=== PATIENT | male | born 1975 | race African-American/Black ===

== ENCOUNTER 2023-07-19 14:31 | Outpatient (CLI) | payer MEDICARE, MEDICAID ==
[2023-07-19 20:12] LABS: BASOPHILS # (AUTO) 0.1 10^3/uL (0.0-0.1); BASOPHILS % (AUTO) 0.7 %; EOSINOPHILS # (AUTO) 0.1 10^3/uL (0.0-0.7); EOSINOPHILS % (AUTO) 0.6 %; HCT - HEMATOCRIT 45.4 % (42.0-52.0); HGB - HEMOGLOBIN 14.8 g/dL (14.0-18.0); LYMPHOCYTES # (AUTO) 2.1 10^3/uL (1.5-3.5); LYMPHOCYTES % (AUTO) 22.7 %; MEAN CORPUSCULAR HEMOGLOBIN 28.9 pg (27.0-31.0); MEAN CORPUSCULAR HGB CONC 32.6 g/dL (32.0-36.0); MEAN CORPUSCULAR VOLUME 88.7 fL (80.0-94.0); MEAN PLATELET VOLUME 8.9 fL (7.4-11.4); MONOCYTES # (AUTO) 0.7 10^3/uL (0.0-1.0); MONOCYTES % (AUTO) 8.2 %; NEUTROPHILS # (AUTO) 6.1 10^3/uL (1.5-6.6); NEUTROPHILS % (AUTO) 67.6 %; PLT - PLATELET COUNT 257 10^3/uL (130-450); RED BLOOD COUNT 5.12 10^6/uL (4.70-6.10); RED CELL DISTRIBUTION WIDTH 12.9 % (12.0-15.0); WHITE BLOOD COUNT 9.1 x10^3/uL (4.8-10.8)
[2023-07-19 20:24] LABS: ALBUMIN 4.7 g/dL (3.2-5.5); ALBUMIN/GLOBULIN RATIO 1.7 (1.0-2.2); BILIRUBIN,TOTAL 0.5 mg/dL (0.2-1.0); CALCIUM 9.8 mg/dL (8.5-10.3); POTASSIUM 4.2 mmol/L (3.5-4.5); TOTAL PROTEIN 7.5 g/dL (6.4-8.9)
== END 2023-07-19 14:32 | disposition home or self-care (01) ==
LOC: LAB.S 14:31
PROVIDERS: ATTEND Physician Assistant Medical
DX: R14.0 Abdominal distension (gaseous) (principal); R10.9 Unspecified abdominal pain
CPT/HCPCS: 36415; 80053; 82150; 83690; 85025

== ENCOUNTER 2023-07-27 10:52 | Emergency (ER) | payer MEDICARE, MEDICAID ==
[2023-07-27 11:05] VITALS: BP 150/89; O2SAT 100
--- NOTE | 2023-07-27 11:42 | ED Physician Documentation ---
History of Present Illness - Stated complaint Stated Complaint: COUGH - Chief complaint Chief Complaint: Resp - History obtained from History obtained from: Patient - Additonal information Additional information: 47-year-old gentleman who is previously healthy. He has been dealing with stomach upset with nausea for 2 years and was seen at the walk-in clinic. Just started Protonix 2 days ago. For 2 weeks he has had a cough. He is not short of breath with it. Was initially productive but now is not. It is worse at night and early in the morning when he is laying flat especially and better when upright. There is no associated fever. PD PAST MEDICAL HISTORY - Past Medical History Past Medical History: Yes GI: Other Other Past Medical History: gallstones - Past Surgical History Past Surgical History: No - Present Medications Home Medications: Ambulatory Orders Medication Instructions Recorded Confirmed Albuterol Sulf [Ventolin Hfa 1 - 2 puffs INH Q4HR PRN #1 each 07/27/23 Inhaler] - Allergies Allergies/Adverse Reactions: Allergies Allergy/AdvReac Type Severity Reaction Status Date / Time No Known Drug Allergies Allergy Verified 07/27/23 11:03 - Social History Does the pt smoke?: Yes Smoking Status: Current every day smoker (1 pack/week) PD ED PE NORMAL - Vitals Vital signs reviewed: Yes - General General: Alert and oriented X 3, No acute distress - Cardiac Cardiac: RRR, No murmur - Respiratory Respiratory: No respiratory distress, Clear bilaterally - Abdomen Abdomen: Normal bowel sounds, Non tender - Back Back: No CVA TTP, No spinal TTP - Derm Derm: Normal color, Warm and dry - Extremities Extremities: No edema, No calf tenderness / cord - Neuro Neuro: Alert and oriented X 3, Normal speech Results - Vitals Vitals: Vital Signs - 24 hr 07/27/23 11:00 Temperature 36.7 C Heart Rate 86 Respiratory 16 Rate Blood Pressure 150/89 H O2 Saturation 100 - Rads (name of study) 2 view chest x-ray is unremarkable Relevant Findings:: Final report received, EMP independent interpretation of test PD Medical Decision Making - ED course ED course: 2 weeks of cough associated with some reflux symptoms, it is worse supine so I suspect this is reflux related bronchospasm. His examination is normal now. Given the length of time we will check a chest x-ray but discussed with him that the PPI that he just started would not expect to have been really effective yet. Departure - Departure Disposition: 01 Home, Self Care Clinical Impression: Cough Qualifiers: Cough type: subacute Qualified Code(s): R05.2 - Subacute cough Condition: Good Record reviewed to determine appropriate education?: Yes Instructions: ED Cough Chronic Cause Unkn Prescriptions: Albuterol Sulf [Ventolin Hfa Inhaler] 1 - 2 puffs INH Q4HR PRN #1 each PRN Reason: Shortness Of Air/Wheezing Comments: As discussed, the pattern of your cough, the fact that is worse when you are laying flat and in the morning and associated with your GI symptoms would suggest to me that it is related to reflux. You are on the right medication but it takes at least a few days to work, so I suspect you will get better over the next few days. I am adding an inhaler which may be helpful as well and do which you can to quit smoking although you do not smoke much. Call your doctor to arrange a follow-up appointment, make the next available appointment. In the interim, return anytime if worse or if new symptoms develop. Forms: PCP List Discharge Date/Time: 07/27/23 11:45
--- NOTE | 2023-07-27 11:57 | XRAY Report ---
PROCEDURE: Chest 2 View X-Ray INDICATIONS: cough TECHNIQUE: 2 views of the chest were acquired. COMPARISON: None. FINDINGS: Surgical changes and devices: None. Lungs and pleura: No pleural effusions or pneumothorax. Lungs are clear. Mediastinum: Mediastinal contours appear normal. Heart size is normal. Bones and chest wall: No suspicious bony lesions. Overlying soft tissues appear unremarkable. IMPRESSION: No acute cardiopulmonary process. Reviewed by: Sheng Rolle MD on 07/27/2023 10:56 AM [facility] Approved by: Sheng Rolle MD on 07/27/2023 10:56 AM [facility] Station ID: [id number]
== END 2023-07-27 11:45 | disposition home or self-care (01) ==
LOC: ED 10:52
DX: R05.2 Subacute cough (principal); F17.210 Nicotine dependence, cigarettes, uncomplicated
CPT/HCPCS: 99283

== ENCOUNTER 2023-08-17 10:00 | Outpatient (CLI) | payer MEDICARE, MEDICAID ==
--- NOTE | 2023-08-17 17:40 | Ultrasound Report ---
PROCEDURE: Abdomen Limited INDICATIONS: ABD PAIN TECHNIQUE: Real-time focused scanning was performed of the abdomen, with image documentation. COMPARISONS: None. FINDINGS: Liver: Liver is normal in size and homogeneous in echotexture. The parenchyma is diffusely echogenic . The main portal vein is patent with hepatopedal flow. Gallbladder: No stones or sludge. Normal wall thickness measuring 1.3 mm. No pericholecystic fluid. Biliary ducts: Intrahepatic bile ducts are non-dilated. Extrahepatic bile duct caliber measures 3.4 mm. Normal is 6-7 mm or less in diameter, or 10 mm or less post-cholecystectomy. Pancreas: Visualized portions of the pancreas are sonographically normal. Right kidney: Normal in size and echotexture. Right kidney measures 10 cm long. No hydronephrosis or nephrolithiasis. No solid masses. No complex renal cystic lesions which require follow-up. Miscellaneous: No free abdominal fluid. IMPRESSION: 1.Liver parenchyma is diffusely echogenic which may be seen in the setting of parenchymal disease suc h as steatosis. 2.Normal gallbladder with no biliary ductal dilatation. Reviewed by: Jose Alberto Alvarado MD on 08/17/2023 5:38 PM PST Approved by: Jose Alberto Alvarado MD on 08/17/2023 5:38 PM PST Station ID: [id number]
== END 2023-08-17 10:01 | disposition home or self-care (01) ==
LOC: DI 10:00
PROVIDERS: ATTEND Physician Assistant Medical
DX: R10.9 Unspecified abdominal pain (principal); R14.0 Abdominal distension (gaseous)